=== PATIENT | male | born 1995 | race Caucasian/White ===

== ENCOUNTER 2022-06-05 12:03 | Emergency (ER) | payer OTHER, BC, SELFPAY ==
[2022-06-05 12:06] VITALS: BP 133/78; PULSE 74; RESP 18; TEMP 36.9; O2SAT 97; BMI 22.5
--- NOTE | 2022-06-05 12:16 | ED.WOUNDLAC ---
HPI - Wound/Laceration General Time Seen by Provider: 12:16 Date Seen: 06/05/22 Chief Complaint: Laceration/Wound Stated Complaint: W/C smashed finger on left hand Time Seen by Provider: 06/05/22 12:04 Source: patient and RN notes reviewed Mode of arrival: ambulatory Limitations: no limitations History of Present Illness HPI narrative: Patient is coming into the ER with a left 2nd finger injury. He was swinging a tool at work and got his finger crushed between the handle of the tool. He sustained a laceration on the palmar surface of his left index finger. His tetanus is up-to-date within the last 2 years, he can not remember if it was last year the year before but he is sure it is up-to-date. He denies any numbness tingling, no other injuries. It did bleed and he held pressure. He has it bandage and it has not bled through. Onset (ago): minute(s) Related Data Home Medications Medication Instructions Recorded Confirmed No Known Home Medications 06/05/22 06/05/22 Allergies Allergy/AdvReac Type Severity Reaction Status Date / Time No Known Drug Allergies Allergy Verified 06/05/22 12:10 Review of Systems Narrative: As per HPI PFSH PFSH Social History Smoking Status: Never smoker Do you use any of these nicotine containing products: None Second hand tobacco smoke exposure: No How often do you have a drink containing alcohol: monthly or less How many standard drinks containing alcohol do you have on a typical day: 1 or 2 How often do you have six or more drinks on one occasion: Never AUDIT-C Alcohol total score: 1 Non-prescribed substance use: denies use Exam Const: Vital Signs, click to edit/add: Vital Signs - 24 hr 06/05/22 12:06 Temperature 98.4 F Pulse Rate [Right Pulse Oximeter] 74 Respiratory Rate 18 Blood Pressure [Ri ght Upper Arm] 133/78 Pulse Oximetry 97 Oxygen Delivery Me thod Room Air Documenting provider has reviewed patient's vital signs: yes Common normals: no apparent distress, average body habitus, oriented x3, no limitations, healthy appearing and alert Extremity: Other: His left 2nd finger has a 1 cm obliquely situated laceration over the middle phalanx of the palmar surface of the index finger. He has normal distal sensation, no active bleeding. He has full intact flexion and extension of this finger. Neuro: Common normals: oriented x3 Sensorium/orientation: alert Course Course Hospital Course: Reviewed with patient that we will get an x-ray to ensure no underlying bony pathology given the crush type mechanism. Clinically, it seems that this is more soft tissue. He understands that he will need to look in the wound a bit better once I prepare for closure. We need to ensure that there is no partial damage to his flexor tendon. At this point he still has preserved full range of motion of this finger but did review with him that there sometimes can be partial damage where he could still rupture of the tendon later. Reviewed with him that I will do my best to examine the wound but it is still possible that there is always a possibility of partial damage to the tendon that I could initially miss. Vital Signs Vital signs: Initial Vital Signs Temperature 98.4 F 06/05/22 12:06 Temperature Source Temporal Artery Scan 06/05/22 12:06 Pulse Rate 74 06/05/22 12:06 Respiratory Rate 18 06/05/22 12:06 Blood Pressure 133/78 06/05/22 12:06 Blood Pressure Mean 96 06/05/22 12:06 Blood Pressure Position Sitting 06/05/22 12:06 Pulse Oximetry 97 06/05/22 12:06 Oxygen Delivery Method 06/05/22 12:06 Vital Signs Temperature 98.4 F 06/05/22 12:06 Pulse Rate 74 06/05/22 12:06 Respiratory Rate 18 06/05/22 12:06 Blood Pressure 133/78 06/05/22 12:06 Pulse Oximetry 97 06/05/22 12:06 Oxygen Delivery Method 06/05/22 12:06 Temperature 98.4 F 06/05/22 12:06 Pulse Rate 74 06/05/22 12:06 Respiratory Rate 18 06/05/22 12:06 Blood Pressure 133/78 06/05/22 12:06 Pulse Oximetry 97 06/05/22 12:06 Oxygen Delivery Method 06/05/22 12:06 MDM - Wound/Laceration Imaging Data X-ray of left index finger: Attestation: I have reviewed the pertinent imaging results. My impression: On my preliminary read, I do not appreciate any fracture. Await Radiology over-read. Radiologist's impression: Patient: PRABHAKAR CHLIDS Facility:[facility] Patient ID:?[id number] Site Patient [id number]:?[id number]. Site :?[id number] Study:?XRay Extremity Left 2ND FINGER-06/05/2022 12:36:38 PM Ordering Physician:Bambi Ty Final Report: INDICATION: Crush injury. TECHNIQUE: Left finger, 3 views. COMPARISON: None. FINDINGS: Bones: Alignment is normal. No fractures or bone lesions. Joint spaces: Unremarkable. Soft tissues: Unremarkable. IMPRESSION: No acute or significant findings. Dictated by Nitesh Menendez MD @ 06/05/2022 12:55:41 PM (Electronic Signature) Critical Care Time Critical Care Time Critical Care Time: No Discharge Plan Discharge Clinical Impression: Finger laceration Condition: Stable Instructions: Care For Your Stitches (ED), Finger Laceration (ED) Additional Instructions: Need to keep finger clean and dry outside of washing your hands and showering. Use bandages to keep the wound clean, especially at work. Can use bacitracin ointment under the bandages. Need to schedule a clinic followup in 7-10 days to assess the wound for suture removal. If there is concern for infection, seek re-evaluation. Please review attached handouts. Prescriptions: No Action No Known Home Medications Follow Up/Referrals: Provider,Not a Local [Primary Care Provider] - Stand Alone Forms: [facility] Info Instructions Procedures Laceration Laceration 1: Pre procedure diagnosis: Finger laceration Post procedure diagnosis: Same Site marking: not applicable Name of person performing procedure: Melony Beatty Site: other (Left index finger) Side (If applicable): left Size (cm): 1.0 Description: linear and clean Depth: simple, single layer Local Anesthetic: lidocaine 1% (10 mL drawn up but only for used locally) Amount of anesthesia used (mL): 4 Pre-repair: wound explored (Just through the skin, it does not extend deeper.), irrigated extensively and deep structures intact Skin layer closed with: other (Ethilon) Size (cm): 4-0 Number of sutures: 3 Technique: simple, interrupted
--- NOTE | 2022-06-05 12:24 | CRLHL7_ITS ---
For Patients: As a result of the Cures Act, medical imaging exams and procedure reports are released immediately into your electronic medical record. You may view this report before your referring provider. If you have questions, please contact your health care provider. INDICATION: Crush injury. TECHNIQUE: Left finger, 3 views. COMPARISON: None. FINDINGS: Bones: Alignment is normal. No fractures or bone lesions. Joint spaces: Unremarkable. Soft tissues: Unremarkable. IMPRESSION: No acute or significant findings. Dictated by Nitesh Menendez MD @ 06/05/2022 12:55:41 PM (Electronically Signed)
--- NOTE | 2022-06-05 12:38 | ED.NURSE ---
Wound on L index finger irrigated with approx ~100mLs sterile NS.
--- NOTE | 2022-06-05 13:29 | ED.NURSE ---
bacitracin and bandaid applied
== END 2022-06-05 13:20 | disposition home or self-care (01) ==
PROVIDERS: Emergency Provider Family Medicine
DX: S61.211A Laceration without foreign body of left index finger without damage to nail, initial encounter (principal); W27.0XXA Contact with workbench tool, initial encounter; Y99.0 Civilian activity done for income or pay
CPT/HCPCS: 12001; 73140; 99283